=== PATIENT | female | born 1975 | race Two or more races ===

== ENCOUNTER 2024-02-11 12:44 | Inpatient (IN) | payer OTHER ==
[2024-02-11 13:15] VITALS: BP 130/70; PULSE 81; RESP 18; TEMP 97.8; BMI 21.6
[2024-02-11] MEDS ORDERED: DICYCLOMINE HCL 10 MG CAPSULE PO PRN (14:07)
[2024-02-11] MEDS ORDERED: ONDANSETRON *ODT* 4 MG TABLET SL PRN (14:07)
[2024-02-11] MEDS ORDERED: MAG HYDROX/AL HYDROX/SIMETH 30 ML UNIT-DOSE CUP PO PRN (14:07)
[2024-02-11] MEDS ORDERED: MAGNESIUM HYDROX 2400MG/30ML ORAL SUSPENSION 30 ML CUP PO PRN (14:07)
[2024-02-11] MEDS ORDERED: IBUPROFEN 600 MG TABLET (FP) PO PRN (14:07)
[2024-02-11] MEDS ORDERED: NICOTINE POLACRILEX 2 MG GUM BUC PRN (14:07)
[2024-02-11] MEDS ORDERED: BENZONATATE 200 MG CAPSULE PO PRN (14:07)
[2024-02-11] MEDS ORDERED: METHOCARBAMOL 500 MG TABLET PO PRN (14:07)
[2024-02-11] MEDS ORDERED: POLYETHYLENE GLYCOL (HEALTHYLAX) 3350 17 GM PACKET PO PRN (14:07)
[2024-02-11] MEDS ORDERED: BENZOCAINE/MENTHOL (CHLORASEPTIC ) LOZENGE MM PRN (14:07)
[2024-02-11] MEDS ORDERED: IBUPROFEN 400 MG TABLET (FP) PO PRN (14:07)
[2024-02-11] MEDS ORDERED: ACETAMINOPHEN 325 MG TABLET (FP) PO PRN (14:07)
[2024-02-11] MEDS ORDERED: NICOTINE POLACRILEX 2 MG LOZENGE BC PRN (14:07)
[2024-02-11] MEDS ORDERED: LOPERAMIDE HCL 2 MG CAPSULE PO PRN (14:07)
[2024-02-11] MEDS ORDERED: guaiFENesin 600 MG TABLET.ER (FP) PO PRN (14:07)
[2024-02-11] MEDS ORDERED: BISMUTH SUBSALICYLATE 524 MG/30 ML PO PRN (14:07)
[2024-02-11] MEDS ORDERED: diazePAM 5 MG TABLET PO PRN (14:09)
[2024-02-11] MEDS ORDERED: diazePAM 5 MG TABLET PO SCH (17:00)
[2024-02-11] MEDS ORDERED: THIAMINE 100 MG TABLET PO SCH (22:00)
[2024-02-11] MEDS ORDERED: MELATONIN 5 MG TABLETS PO SCH (22:00)
[2024-02-12] MEDS ORDERED: PRENATAL VITAMINS W/ FOLIC ACID TABLET (FP) PO SCH (10:00)
[2024-02-13] MEDS ORDERED: diazePAM 5 MG TABLET PO SCH (06:00)
[2024-02-14] MEDS ORDERED: diazePAM 5 MG TABLET PO SCH (06:00)
[2024-02-15] MEDS ORDERED: diazePAM 5 MG TABLET PO ONE (06:00)
== END 2024-02-11 14:33 | disposition left against medical advice (07) | DRG 770 ==
LOC: YASAS 12:44 → Y6N 14:11
PROVIDERS: ADMIT Allergy & Immunology; ATTEND Surgery
PROC: HZ2ZZZZ Detoxification Services for Substance Abuse Treatment (ICD-10-PCS; principal; 2024-02-11)
DX: F10.230 Alcohol dependence with withdrawal, uncomplicated (principal); F14.20 Cocaine dependence, uncomplicated; F12.20 Cannabis dependence, uncomplicated; F17.210 Nicotine dependence, cigarettes, uncomplicated
CPT/HCPCS: 80305; 80307; 81025